=== PATIENT | male | born 1950 | race African-American/Black ===

== ENCOUNTER 2017-05-15 00:17 | Inpatient (IN) | payer MEDICARE ==
[~2017-05-15] VITALS: Ht 177.8 cm; Wt 98.7 kg
[2017-05-15] VITALS (7 sets, daily range): BP systolic 128–193; BP diastolic 60–101
[2017-05-15] MEDS ORDERED: INSLAN SQ (00:39)
[2017-05-15] MEDS ORDERED: MIRALAX PO (00:39)
[2017-05-15] MEDS ORDERED: PHOSLOC PO (00:39)
[2017-05-15] MEDS ORDERED: OMEP20 PO (00:39)
[2017-05-15] MEDS ORDERED: GABA-529 PO (00:39)
[2017-05-15] MEDS ORDERED: CARV12 PO (00:39)
[2017-05-15] MEDS ORDERED: SERT50TA12 PO (00:39)
[2017-05-15] MEDS ORDERED: ATOR40TA28 PO (00:39)
[2017-05-15] MEDS ORDERED: SENN-175 PO (00:39)
[2017-05-15 01:41] LABS: HEMATOCRIT 27.6 % (41-53); LYMPHOCYTES # (AUTO) 0.6 K/uL (1.0-4.8); LYMPHOCYTES % (AUTO) 8.3 % (22.0-44.0); MEAN CORPUSCULAR HEMOGLOBIN 29.9 pg (26.0-34.0); MEAN CORPUSCULAR HGB CONC 32.8 G/dL (31.0-37.0); MEAN CORPUSCULAR VOLUME 91 fL (80-100); MONOCYTES # (AUTO) 0.8 K/uL (0.1-1.0); MONOCYTES % (AUTO) 10.2 % (2.0-9.0); NEUTROPHILS # (AUTO) 6.1 K/uL (1.8-7.7); NEUTROPHILS % (AUTO) 79.5 % (40.0-70.0); PLATELET COUNT (AUTO) 296 K/uL (150-450); RED BLOOD CELL COUNT(AUTO) 3.02 MIL/uL (4.50-5.90); RED CELL DISTRIBUTION WIDTH 17.6 % (11.5-14.5); WHITE BLOOD COUNT (AUTO) 7.6 K/uL (4.5-11.0)
[2017-05-15 01:53] LABS: CALCIUM, TOTAL 8.9 mg/dL (8.8-10.5); CREATININE 5.92 mg/dL (0.60-1.30); POTASSIUM 4.4 mmol/L (3.5-5.1)
[2017-05-15 01:59] LABS: ALBUMIN 2.3 g/dL (3.4-5.0); BILIRUBIN,TOTAL 0.3 mg/dL (0.1-1.0); TOTAL PROTEIN, SERUM 7.1 g/dL (6.4-8.2)
[2017-05-15] MEDS ORDERED: NITROGLYCERIN 2% (1 GM=INCH) PACKET TP ONE (02:45)
[2017-05-15] MEDS ORDERED: ASPIRIN 325 MG TABLET PO ONE (02:45)
[2017-05-15] MEDS ORDERED: FUROSEMIDE 40 MG/4 ML VIAL IVP ONE (02:45)
[2017-05-15 03:03] LABS: RBC MORPHOLOGY COMMENT ABNORMAL RBC MORPH
[2017-05-15] MEDS ORDERED: 0.9% SODIUM CHLORIDE 10 ML SYRINGE IVP PRN (03:15)
[2017-05-15] MEDS ORDERED: ACETAMINOPHEN 325 MG TABLET PO PRN ×2 (03:15→11:00)
[2017-05-15] MEDS ORDERED: ONDANSETRON HCL 4 MG/2 ML VIAL IVP PRN (03:15)
[2017-05-15] MEDS ORDERED: HydrALAZINE HCL 20 MG/ML VIAL ONE (10:10)
[2017-05-15] MEDS ORDERED: HydrALAZINE HCL 20 MG/ML VIAL IVP ONE (10:15)
[2017-05-15] MEDS ORDERED: OxyCODONE HCL/ACETAMINOPHEN 5-325 MG TABLET PO PRN (11:00)
[2017-05-15] MEDS ORDERED: DEXTROSE 50%-WATER 25 GM/50 ML SYRINGE IVP PRN (11:00)
[2017-05-15] MEDS ORDERED: BISACODYL 10 MG RECTAL RECTAL SUPPOSITORY PR PRN (11:00)
[2017-05-15] MEDS: CARVEDILOL 12.5 MG TABLET PO SCH ×3 (11:00→20:14)
[2017-05-15] MEDS ORDERED: ALBUTEROL SULFATE 2.5 MG/0.5 ML NEB SOLUTION NEB PRN (11:00)
[2017-05-15] MEDS: ASPIRIN 81 MG CHEWABLE TABLET PO SCH ×2 (11:00→12:17)
[2017-05-15] MEDS: VITAMIN B COMP/VIT C/FOLIC ACID CAPSULE PO SCH ×2 (11:00→12:33)
[2017-05-15] MEDS ORDERED: INSULIN ASPART 100 UNITS/ML SQ PRN (11:00)
[2017-05-15] MEDS: AmLODIPine BESYLATE 5 MG TABLET PO SCH ×2 (11:00→12:17)
[2017-05-15] MEDS: SEVELAMER CARBONATE 800 MG TABLET PO SCH ×3 (12:00→20:24)
[2017-05-15] MEDS ORDERED: SODIUM CHLORIDE 0.9% 2,000 ML IV ONE (14:58)
[2017-05-15] MEDS: LABETALOL HCL 100 MG TABLET PO SCH ×2 (16:00→23:47)
[2017-05-15] MEDS ORDERED: EPOETIN ALFA 10,000 UNITS/ML 2 ML VIAL SQ SCH (16:32)
[2017-05-15 16:58] LABS: GLUCOSE,POINT OF CARE 83 MG/DL (70-110)
[2017-05-15] MEDS ORDERED: HEPARIN SODIUM,PORCINE 1,000 UNITS/ML VIAL IVP ONE ×3 (17:23→19:45)
[2017-05-15] MEDS ORDERED: DiphenhydrAMINE HCL 50 MG/ML VIAL IM ONE (17:23)
[2017-05-15] MEDS ORDERED: DiphenhydrAMINE HCL 50 MG/ML VIAL IVP PRN (19:45)
[2017-05-15] MEDS: DOCUSATE SODIUM 100 MG CAPSULE PO SCH (20:14)
[2017-05-15] MEDS: VALSARTAN 160 MG TABLET PO SCH (20:15)
[2017-05-15] MEDS: HEPARIN SODIUM,PORCINE 5,000 UNITS/ML VIAL SQ SCH (20:24)
[2017-05-15] MEDS ORDERED: ATORVASTATIN CALCIUM 20 MG TABLET PO SCH (21:00)
[2017-05-15 22:48] LABS: GLUCOSE,POINT OF CARE 139 MG/DL (70-110)
[2017-05-16 04:31] VITALS: BP 138/81
[2017-05-16 05:53] LABS: GLUCOSE,POINT OF CARE 131 MG/DL (70-110)
[2017-05-16 06:26] LABS: CALCIUM, TOTAL 8.3 mg/dL (8.8-10.5); CREATININE 4.18 mg/dL (0.60-1.30); PHOSPHORUS 3.3 mg/dL (2.5-4.9); POTASSIUM 3.9 mmol/L (3.5-5.1)
[2017-05-16 07:31] VITALS: BP 121/60
[2017-05-16] MEDS: DOCUSATE SODIUM 100 MG CAPSULE PO SCH ×2 (08:44→08:55)
[2017-05-16] MEDS: AmLODIPine BESYLATE 5 MG TABLET PO SCH (08:44)
[2017-05-16] MEDS: CARVEDILOL 12.5 MG TABLET PO SCH (08:44)
[2017-05-16] MEDS: VALSARTAN 160 MG TABLET PO SCH (08:44)
[2017-05-16] MEDS: HEPARIN SODIUM,PORCINE 5,000 UNITS/ML VIAL SQ SCH (08:44)
[2017-05-16] MEDS: ASPIRIN 81 MG CHEWABLE TABLET PO SCH (08:45)
[2017-05-16] MEDS: SEVELAMER CARBONATE 800 MG TABLET PO SCH ×3 (08:46→17:44)
[2017-05-16] MEDS: LABETALOL HCL 100 MG TABLET PO SCH ×2 (08:46→16:17)
[2017-05-16] MEDS: VITAMIN B COMP/VIT C/FOLIC ACID CAPSULE PO SCH (08:48)
[2017-05-16] MEDS ORDERED: PANTOPRAZOLE SODIUM 40 MG DR TABLET PO SCH (09:00)
[2017-05-16 11:12] VITALS: BP 119/58
[2017-05-16 12:12] LABS: GLUCOSE,POINT OF CARE 70 MG/DL (70-110)
[2017-05-16 12:50] LABS: BASOPHILS % (AUTO) 0.1 % (0.0-2.0); EOSINOPHILS % (AUTO) 1.6 % (1.0-6.0); HEMATOCRIT 26.6 % (41-53); HEMOGLOBIN 8.8 g/dL (13.5-17.5); LYMPHOCYTES # (AUTO) 0.9 K/uL (1.0-4.8); LYMPHOCYTES % (AUTO) 13.6 % (22.0-44.0); MEAN CORPUSCULAR HEMOGLOBIN 29.9 pg (26.0-34.0); MEAN CORPUSCULAR HGB CONC 33.1 G/dL (31.0-37.0); MEAN CORPUSCULAR VOLUME 90 fL (80-100); MONOCYTES # (AUTO) 0.7 K/uL (0.1-1.0); MONOCYTES % (AUTO) 9.7 % (2.0-9.0); NEUTROPHILS # (AUTO) 5.1 K/uL (1.8-7.7); PLATELET COUNT (AUTO) 266 K/uL (150-450); RED BLOOD CELL COUNT(AUTO) 2.94 MIL/uL (4.50-5.90); RED CELL DISTRIBUTION WIDTH 17.1 % (11.5-14.5); WHITE BLOOD COUNT (AUTO) 6.8 K/uL (4.5-11.0)
[2017-05-16 13:19] LABS: RBC MORPHOLOGY COMMENT ABNORMAL RBC MORPH
[2017-05-16 15:07] VITALS: BP 138/76
[2017-05-17 21:42] LABS: GLUCOSE,POINT OF CARE 137 MG/DL (70-110)
[2017-05-18 07:32] LABS: GLUCOSE,POINT OF CARE 83 MG/DL (70-110)
== END 2017-05-16 18:10 | DRG 304 ==
LOC: EMS 00:18 → 5S 03:21
PROVIDERS: ADMIT Internal Medicine; ATTEND Internal Medicine
PROC: 5A1D70Z Performance of Urinary Filtration, Intermittent, Less than 6 Hours Per Day (ICD-10-PCS; principal; 2017-05-15)
DX: I16.0 Hypertensive urgency (principal); N18.6 End stage renal disease; E11.22 Type 2 diabetes mellitus with diabetic chronic kidney disease; E11.51 Type 2 diabetes mellitus with diabetic peripheral angiopathy without gangrene; I48.92 Unspecified atrial flutter; E11.65 Type 2 diabetes mellitus with hyperglycemia; I12.0 Hypertensive chronic kidney disease with stage 5 chronic kidney disease or end stage renal disease; E87.70 Fluid overload, unspecified; I25.5 Ischemic cardiomyopathy; D63.8 Anemia in other chronic diseases classified elsewhere; E78.00 Pure hypercholesterolemia, unspecified; F17.210 Nicotine dependence, cigarettes, uncomplicated; I25.10 Atherosclerotic heart disease of native coronary artery without angina pectoris; Z99.2 Dependence on renal dialysis; I25.2 Old myocardial infarction; Z87.11 Personal history of peptic ulcer disease
CPT/HCPCS: 82962; 84100; 87081; 87340; 90935; 93005; 93306; 96374; 99285; J0360; J0885; J1200; J1644; J1940; J7030

== ENCOUNTER 2017-10-02 05:36 | Inpatient (IN) | payer MEDICARE ==
[~2017-10-02] VITALS: Ht 177.8 cm; Wt 98.5 kg
[~2017-10-02 05:36] MED LIST: ATOR40TA28 PO; CARV12 PO; GABA-529 PO; INSLAN SQ; MIRALAX PO; OMEP20 PO; PHOSLOC PO; SENN-175 PO; SERT50TA12 PO
[2017-10-02 05:52] LABS: GLUCOSE,POINT OF CARE 191 MG/DL (70-110)
[2017-10-02 06:14] LABS: ANION GAP 5 mmol/L (8-16); CALCIUM, TOTAL 9.3 mg/dL (8.8-10.5); CARBON DIOXIDE 33 mmol/L (22-29); CHLORIDE 103 mmol/L (98-107); CREATININE 5.99 mg/dL (0.60-1.30); GLOMERULAR FILTR. RATE CALC 11 mL/min (>60); GLUCOSE,RANDOM 195 mg/dL (70-110); POTASSIUM 3.9 mmol/L (3.5-5.1); SODIUM SERUM 141 mmol/L (136-145); UREA NITROGEN, BLOOD 58 mg/dL (7-18)
[2017-10-02] MEDS ORDERED: ONDANSETRON HCL 4 MG/2 ML VIAL IVP ONE (06:15)
[2017-10-02] MEDS ORDERED: BUMETANIDE 0.25 MG/ML 4 ML VIAL IVP ONE (06:15)
[2017-10-02] MEDS ORDERED: MORPHINE SULFATE 4 MG/ML SYRINGE IVP ONE (06:15)
[2017-10-02 06:17] LABS: PROTHROMBIN TIME 10.3 SEC (9.4-11.6)
[2017-10-02 06:19] LABS: BASOPHILS % (AUTO) 0.3 % (0.0-2.0); HEMATOCRIT 35.2 % (41-53); HEMOGLOBIN 11.5 g/dL (13.5-17.5); LYMPHOCYTES % (AUTO) 7.8 % (22.0-44.0); MEAN CORPUSCULAR HGB CONC 32.7 G/dL (31.0-37.0); MEAN CORPUSCULAR VOLUME 82 fL (80-100); MONOCYTES # (AUTO) 0.9 K/uL (0.1-1.0); MONOCYTES % (AUTO) 7.1 % (2.0-9.0); NEUTROPHILS # (AUTO) 10.7 K/uL (1.8-7.7); NEUTROPHILS % (AUTO) 83.8 % (40.0-70.0); PLATELET COUNT (AUTO) 213 K/uL (150-450); RED BLOOD CELL COUNT(AUTO) 4.27 MIL/uL (4.50-5.90); RED CELL DISTRIBUTION WIDTH 20.7 % (11.5-14.5)
[2017-10-02 06:39] LABS: ALANINE AMINOTRANSFERASE 22 U/L (12-78); ALBUMIN 2.7 g/dL (3.4-5.0); ALKALINE PHOSPHATASE 111 U/L (46-116); ASPARTATE AMINOTRANSFERASE 31 U/L (15-37); BILIRUBIN,TOTAL 0.3 mg/dL (0.1-1.0); CREATINE KINASE MB 2.5 ng/mL (0-5); CREATINE KINASE, TOTAL 96 U/L (39-308); TOTAL PROTEIN, SERUM 7.1 g/dL (6.4-8.2)
[2017-10-02 06:43] LABS: B-TYPE NATRIURETIC PEPTIDE 1740 pg/mL (0-100)
[2017-10-02] MEDS ORDERED: ACETAMINOPHEN 325 MG TABLET PO PRN (09:15)
[2017-10-02] MEDS ORDERED: 0.9% SODIUM CHLORIDE 10 ML SYRINGE IVP PRN (09:15)
[2017-10-02] MEDS ORDERED: ONDANSETRON HCL 4 MG/2 ML VIAL IVP PRN (09:15)
[2017-10-02 12:08] VITALS: BP 178/103
[2017-10-02] MEDS ORDERED: HEPARIN SODIUM,PORCINE 1,000 UNITS/ML VIAL IVP ONE (12:54)
[2017-10-02 13:46] LABS: APPEARANCE,URINE CLEAR (CLEAR); BILIRUBIN,URINE NEGATIVE (NEGATIVE); GLUCOSE, URINE (UA) 250 mg/dL (NEGATIVE); KETONES,URINE NEGATIVE (NEGATIVE); LEUKOCYTE ESTERASE ,URINE NEGATIVE (NEGATIVE); NITRATE,URINE NEGATIVE (NEGATIVE); OCCULT BLOOD,URINE LARGE (NEGATIVE); PH,URINE 7.5 (5.0-8.0); PROTEIN,URINE SEE CONFIRM (NEGATIVE); UROBILINOGEN,URINE 0.2 mg/dL (<=1.0)
[2017-10-02 14:01] LABS: SULFOSALICYLIC ACID,URINE 3+ (Negative)
[2017-10-02 14:02] LABS: BACTERIA,URINE None Seen /HPF (None Seen); RBC,URINE 26-50 /HPF (0-2); WBC,URINE None Seen /HPF (0-5)
[2017-10-02 16:17] VITALS: BP 142/81
[2017-10-02 19:44] VITALS: BP 158/96
[2017-10-02] MEDS ORDERED: IBUPROFEN 600 MG TABLET PO PRN (21:45)
[2017-10-02 21:48] LABS: GLUCOMETER DEV NAME(LOC) 5S 2P; GLUCOSE,POINT OF CARE 141 MG/DL (70-110)
[2017-10-02 22:27] LABS: GLUCOMETER DEV NAME(LOC) 5N 1P; GLUCOSE,POINT OF CARE 138 MG/DL (70-110)
[2017-10-02 23:55] VITALS: BP 126/76
[2017-10-03 04:09] VITALS: BP 152/79
[2017-10-03 07:12] VITALS: BP 140/68
[2017-10-03 07:23] LABS: BASOPHILS % (AUTO) 0.9 % (0.0-2.0); EOSINOPHILS % (AUTO) 1.1 % (1.0-6.0); HEMATOCRIT 33.8 % (41-53); HEMOGLOBIN 11.1 g/dL (13.5-17.5); LYMPHOCYTES # (AUTO) 0.8 K/uL (1.0-4.8); LYMPHOCYTES % (AUTO) 9.1 % (22.0-44.0); MEAN CORPUSCULAR HEMOGLOBIN 27.3 pg (26.0-34.0); MEAN CORPUSCULAR HGB CONC 32.9 G/dL (31.0-37.0); MEAN CORPUSCULAR VOLUME 83 fL (80-100); MONOCYTES # (AUTO) 0.8 K/uL (0.1-1.0); MONOCYTES % (AUTO) 9.3 % (2.0-9.0); NEUTROPHILS # (AUTO) 6.9 K/uL (1.8-7.7); NEUTROPHILS % (AUTO) 79.6 % (40.0-70.0); PLATELET COUNT (AUTO) 195 K/uL (150-450); RED BLOOD CELL COUNT(AUTO) 4.08 MIL/uL (4.50-5.90); RED CELL DISTRIBUTION WIDTH 20.9 % (11.5-14.5)
[2017-10-03 07:34] LABS: CALCIUM, TOTAL 8.7 mg/dL (8.8-10.5); CREATININE 4.62 mg/dL (0.60-1.30); POTASSIUM 4.2 mmol/L (3.5-5.1)
[2017-10-03 07:40] LABS: ALBUMIN 2.4 g/dL (3.4-5.0); BILIRUBIN,TOTAL 0.4 mg/dL (0.1-1.0); TOTAL PROTEIN, SERUM 6.8 g/dL (6.4-8.2)
[2017-10-03 12:09] VITALS: BP 154/94
[2017-10-03 13:12] LABS: GLUCOMETER DEV NAME(LOC) 5N 2S; GLUCOSE,POINT OF CARE 92 MG/DL (70-110)
== END 2017-10-03 12:55 | disposition left against medical advice (07) | DRG 189 ==
LOC: EMS 05:37 → 5S 10:02
PROVIDERS: ADMIT Hospitalist; ATTEND Hospitalist
PROC: 5A1D70Z Performance of Urinary Filtration, Intermittent, Less than 6 Hours Per Day (ICD-10-PCS; principal; 2017-10-02)
DX: J96.00 Acute respiratory failure, unspecified whether with hypoxia or hypercapnia (principal); I13.2 Hypertensive heart and chronic kidney disease with heart failure and with stage 5 chronic kidney disease, or end stage renal disease; E11.22 Type 2 diabetes mellitus with diabetic chronic kidney disease; E11.40 Type 2 diabetes mellitus with diabetic neuropathy, unspecified; N18.6 End stage renal disease; E87.70 Fluid overload, unspecified; D63.1 Anemia in chronic kidney disease; E11.51 Type 2 diabetes mellitus with diabetic peripheral angiopathy without gangrene; E11.65 Type 2 diabetes mellitus with hyperglycemia; Z53.21 Procedure and treatment not carried out due to patient leaving prior to being seen by health care provider; E78.00 Pure hypercholesterolemia, unspecified; E78.5 Hyperlipidemia, unspecified; E87.5 Hyperkalemia; I25.10 Atherosclerotic heart disease of native coronary artery without angina pectoris; I50.9 Heart failure, unspecified; J44.9 Chronic obstructive pulmonary disease, unspecified; F17.210 Nicotine dependence, cigarettes, uncomplicated; Z91.15 Patient's noncompliance with renal dialysis; Z91.19 Patient's noncompliance with other medical treatment and regimen; Z99.2 Dependence on renal dialysis; Z79.4 Long term (current) use of insulin; Z79.899 Other long term (current) drug therapy; Z83.3 Family history of diabetes mellitus; Z82.49 Family history of ischemic heart disease and other diseases of the circulatory system
CPT/HCPCS: 87081; 87340; 93005; 94660; 96374; 96375; 99291; J1644; J2270; J2405; J3490

== ENCOUNTER 2017-12-03 20:22 | Emergency (ER) | payer MEDICARE ==
[~2017-12-03] VITALS: Ht 177.8 cm; Wt 89.1 kg
[2017-12-03 20:44] LABS: GLUCOSE,POINT OF CARE 179 MG/DL (70-110)
[2017-12-03 21:37] LABS: BASOPHILS % (AUTO) 1.4 % (0.0-2.0); EOSINOPHILS % (AUTO) 1.5 % (1.0-6.0); HEMATOCRIT 28.2 % (41-53); HEMOGLOBIN 9.5 g/dL (13.5-17.5); LYMPHOCYTES % (AUTO) 13.5 % (22.0-44.0); MEAN CORPUSCULAR HEMOGLOBIN 30.4 pg (26.0-34.0); MEAN CORPUSCULAR HGB CONC 33.9 G/dL (31.0-37.0); MEAN CORPUSCULAR VOLUME 90 fL (80-100); MONOCYTES # (AUTO) 0.7 K/uL (0.1-1.0); MONOCYTES % (AUTO) 9.4 % (2.0-9.0); NEUTROPHILS # (AUTO) 5.5 K/uL (1.8-7.7); NEUTROPHILS % (AUTO) 74.2 % (40.0-70.0); PLATELET COUNT (AUTO) 271 K/uL (150-450); RED BLOOD CELL COUNT(AUTO) 3.14 MIL/uL (4.50-5.90); RED CELL DISTRIBUTION WIDTH 18.4 % (11.5-14.5)
[2017-12-03 21:51] LABS: PROTHROMBIN TIME 10.4 SEC (9.4-11.6)
[2017-12-03] MEDS ORDERED: MECLIZINE HCL 25 MG TABLET PO ONE (22:00)
[2017-12-03 22:01] LABS: CALCIUM, TOTAL 8.5 mg/dL (8.8-10.5); CREATININE 6.82 mg/dL (0.60-1.30); POTASSIUM 4.4 mmol/L (3.5-5.1)
[2017-12-03 22:07] LABS: ALBUMIN 2.8 g/dL (3.4-5.0); BILIRUBIN,TOTAL 0.2 mg/dL (0.1-1.0); TOTAL PROTEIN, SERUM 6.9 g/dL (6.4-8.2)
[2017-12-04 00:31] VITALS: BP 133/74
== END 2017-12-04 00:31 | disposition home or self-care (01) ==
LOC: EMS 20:22
DX: R42 Dizziness and giddiness (principal); I12.0 Hypertensive chronic kidney disease with stage 5 chronic kidney disease or end stage renal disease; E11.22 Type 2 diabetes mellitus with diabetic chronic kidney disease; N18.6 End stage renal disease; E78.00 Pure hypercholesterolemia, unspecified; F17.210 Nicotine dependence, cigarettes, uncomplicated; Z99.2 Dependence on renal dialysis; Z79.4 Long term (current) use of insulin
CPT/HCPCS: 70450; 93005; 99285